=== PATIENT | female | born 1985 | race Two or more races ===

== ENCOUNTER 2017-03-04 10:14 | Emergency (ER) | payer SELFPAY ==
[~2017-03-04] VITALS: Ht 167.6 cm; Wt 84.4 kg
[2017-03-04 10:24] VITALS: BP 129/60
== END 2017-03-04 11:13 | disposition home or self-care (01) ==
LOC: ER 10:16
DX: H10.89 Other conjunctivitis (principal)
CPT/HCPCS: 99284; A4606; Z7610